=== PATIENT | female | born 1985 | race African-American/Black ===

== ENCOUNTER 2016-05-30 22:20 | Emergency (ER) | payer OTHER ==
[~2016-05-30] VITALS: Ht 157.5 cm; Wt 120.1 kg
[~2016-05-30 22:20] MED LIST: ENDOCET 5-3251 EACH PO; NOHOMEMEDS
[2016-05-30 23:49] VITALS: BP 138/90
== END 2016-05-30 23:49 | disposition home or self-care (01) ==
LOC: EME 22:20
DX: R04.0 Epistaxis (principal)
CPT/HCPCS: 99281; 99283